=== PATIENT | female | born 1985 | race African-American/Black ===

== ENCOUNTER 2018-05-22 15:40 | Emergency (ER) | payer MEDICAID ==
[~2018-05-22] VITALS: Ht 160 cm; Wt 59.0 kg
[2018-05-22 15:41] VITALS: BP 118/70
== END 2018-05-22 20:13 | disposition home or self-care (01) ==
LOC: ER 17:49
DX: R07.0 Pain in throat (principal)
CPT/HCPCS: 70360; 81025; 87070; 87430; 99285